=== PATIENT | female | born 1965 | race Caucasian/White ===

== ENCOUNTER 2017-01-11 12:11 | Emergency (ER) | payer OTHER ==
[~2017-01-11] VITALS: Ht 165.1 cm; Wt 81.6 kg
[~2017-01-11 12:11] MED LIST: AMLO5TAB PO; CIPRO 500MG TA500 MG PO; CITALOPRAM20 M1 PO; CITALOPRAM40 MG PO; DIABETA2.5 MG PO; FIBER THERAPY0.52 GM PO; HUMALOG100 U/M1 SC; JANUMET 1000 MG1 TAB PO; LAMICTAL150 MG PO; LANTUS INS100 UNITS/ SC; LEXAPRO10 MG PO; LISINOPRIL10 MG PO; METFORMIN1000 MG PO; METOPROLOL TAR100 MG PO; METOPROLOL25 MG PO; MOTRIN600 MG PO; NAPROXEN DELAY500 MG PO; SIMVASTATIN10 MG PO; SULFAMETHOXAZOL1 TA6 PO; TRILIPIX45 MG PO; WELLBUTRIN100 MG PO
[2017-01-11] MEDS ORDERED: DULOXETINE60 MG PO (12:39)
[2017-01-11 12:44] LABS: URINE BILIRUBIN - DIPSTICK NEGATIVE (NEG); URINE BLOOD MODERATE (NEG)
--- NOTE | 2017-01-11 12:57 | Urgent Treatment Center Report ---
History of Present Issue Date/Time Seen by Provider 01/11/17 1244 Visit Reason Pt arrived:Walked Presenting Problem:PT REPORTS LOWER ABD SORENESS, FREQUENT URINATION, AND LOW GRADE FEVER X5 DAYS. STATES PAIN WORSENS WHEN NEEDS TO URINATE Location if Accident: Onset of symptoms date/time:01/06/17/ or onset unknown for:MEDICAL HX UNKNOWN Have you (or family members/close friends) recently traveled outside the [place]? N If Yes, where/when: Have you had exposure to infectious disease within the past month? TB? Other? Specify: Patient state that she has been having some lower abdominal pain and feeling likes she needs to go to the bathroom alot and frequent urination. States that she did have a slight fever last week but that seems to be better and states that she only has pain in her abdomen when seh goes to the bathroom to urinate ALLERGIES Coded Allergies: etodolac (01/11/17) niacin (01/11/17) Home Medications Reported Medications FENOFIBRIC ACID (CHOLINE) (Trilipix) 45 MG PO DAILY Lisinopril 10 MG PO BID METFORMIN HCL (Metformin) 1,000 MG PO BID #60 TAB Lamotrigine (Lamictal) 150 MG PO QHS Amlodipine Besylate (Amlodipine) 5 MG PO DAILY Metoprolol Tartrate (Metoprolol 100MG) 100 MG PO DAILY Insulin Glargine (Lantus Insulin Vial) 54 UNITS SC QHS INSULIN LISPRO (Humalog) 18 UNITS SC 1200, 1730 DULOXETINE HCL (Duloxetine) 60 MG PO DAILY #30 History Medical History General CAD? No Angina: No [place]: No Hypertension? Yes Hyperlipidemia? Yes CHF? No DVT? No PE? No COPD? No Asthma? No Anemia? No GERD? No Gastric ulcers? No GI Bleed? No Hernia? No Thyroid Problems? No Hypothyroidism? No CVA? No Seizures? No Diabetes? Yes Insulin Dependent: Yes Insulin Pump: No Home FSBS? Yes Renal Insuffiency? No UTI? No Stones? No BPH? No GB Disease: No Nephritic Syndrome? No Asplenia? No Hepatitis? No Sickle Cell Disease? No Arthritis? Yes Migraines? No Cataracts? No Glaucoma? No MRSA? No HIV? No TB? No Anxiety? No Depression? No Cancer? 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 Comment Patient advised that she is having pressure and freqency of urination states that she feels like she needs to urinate all the time and has some burning Physical Exam Vital Signs Vital Signs Date Time Temp Pulse Resp B/P Pulse O2 O2 Flow FiO2 Ox Delivery Rate 01/11 1236 98.0 90 16 164/96 99 01/11 1215 98.0 90 16 164/96 99 General Appearance normal appearance, WD/WN, no apparent distress Respiratory Status Yes: trachea midline, chest symmetrical, non tender chest. No: respiratory distress. 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 No Results/Orders Laboratory Tests 01/11/17 1242: Urine Color YELLOW, Urine Appearance Clear, Urine pH 7.0, Ur Specific [place] 1.015, Urine Protein NEGATIVE, Urine Ketones NEGATIVE, Urine Blood MODERATE, Urine Nitrate NEGATIVE, Urine Bilirubin NEGATIVE, Urine Urobilinogen 1.0, Ur Leukocyte Esterase SMALL, Urine Glucose NEGATIVE Current Medication Orders Sig/Milly Start time Last Medication Dose Route Stop Time Status Admin Ceftriaxone Sodium 1 GM ONCE ONE 01/11 1300 DC 01/11 IM 01/11 1301 1303 Lidocaine HCl 0 ONCE ONE 01/11 1300 DC 01/11 IM 01/11 1301 1303 Ceftriaxone Sodium 0 .STK-MED ONE 01/11 1258 DC .ROUTE Lidocaine HCl 0 .STK-MED ONE 01/11 1257 DC IJ Orders Procedure Date/time Status [facility] URINE DIPSTICK 01/11 1242 Complete Departure Departure Time of Disposition 1317 Disposition DC Home or Self Care(routine) Clinical Impression Primary Impression: UTI (urinary tract infection) Qualifiers: Urinary tract infection type: site unspecified Hematuria presence: with hematuria Qualified Code: N39.0 - Urinary tract infection, site not specified Condition STABLE Referrals Reilly Paetl MD (Family): 2 Days-Call Office Follow up 2-3 days if no improvement Patient Instructions DI for Urinary Tract Infection (UTI) Additional Instructions hours without medication for symptoms Follow up with family doctor REturn if needed Take medicaiton as prescribed Discharge Counseling Counseled pt/family regarding diagnosis, test results, medications/RX, home care, follow up needs Prescriptions Current Visit Scripts SULFAMETHOXAZOLE W/TRIMETHOPRI (Bactrim Ds Tab) 1 TABLET PO BID #20 TAB at 5001
--- NOTE | 2017-01-11 12:57 | Urgent Treatment Center Report ---
History of Present Issue Date/Time Seen by Provider 01/11/17 1244 Visit Reason Pt arrived:Walked Presenting Problem:PT REPORTS LOWER ABD SORENESS, FREQUENT URINATION, AND LOW GRADE FEVER X5 DAYS. STATES PAIN WORSENS WHEN NEEDS TO URINATE Location if Accident: Onset of symptoms date/time:01/06/17/ or onset unknown for:MEDICAL HX UNKNOWN Have you (or family members/close friends) recently traveled outside the [place]? N If Yes, where/when: Have you had exposure to infectious disease within the past month? TB? Other? Specify: Patient state that she has been having some lower abdominal pain and feeling likes she needs to go to the bathroom alot and frequent urination. States that she did have a slight fever last week but that seems to be better and states that she only has pain in her abdomen when seh goes to the bathroom to urinate ALLERGIES Coded Allergies: etodolac (01/11/17) niacin (01/11/17) Home Medications Reported Medications FENOFIBRIC ACID (CHOLINE) (Trilipix) 45 MG PO DAILY Lisinopril 10 MG PO BID METFORMIN HCL (Metformin) 1,000 MG PO BID #60 TAB Lamotrigine (Lamictal) 150 MG PO QHS Amlodipine Besylate (Amlodipine) 5 MG PO DAILY Metoprolol Tartrate (Metoprolol 100MG) 100 MG PO DAILY Insulin Glargine (Lantus Insulin Vial) 54 UNITS SC QHS INSULIN LISPRO (Humalog) 18 UNITS SC 1200, 1730 DULOXETINE HCL (Duloxetine) 60 MG PO DAILY #30 History Medical History General CAD? No Angina: No [place]: No Hypertension? Yes Hyperlipidemia? Yes CHF? No DVT? No PE? No COPD? No Asthma? No Anemia? No GERD? No Gastric ulcers? No GI Bleed? No Hernia? No Thyroid Problems? No Hypothyroidism? No CVA? No Seizures? No Diabetes? Yes Insulin Dependent: Yes Insulin Pump: No Home FSBS? Yes Renal Insuffiency? No UTI? No Stones? No BPH? No GB Disease: No Nephritic Syndrome? No Asplenia? No Hepatitis? No Sickle Cell Disease? No Arthritis? Yes Migraines? No Cataracts? No Glaucoma? No MRSA? No HIV? No TB? No Anxiety? No Depression? No Cancer? 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 Comment Patient advised that she is having pressure and freqency of urination states that she feels like she needs to urinate all the time and has some burning Physical Exam Vital Signs Vital Signs Date Time Temp Pulse Resp B/P Pulse O2 O2 Flow FiO2 Ox Delivery Rate 01/11 1236 98.0 90 16 164/96 99 01/11 1215 98.0 90 16 164/96 99 General Appearance normal appearance, WD/WN, no apparent distress Respiratory Status Yes: trachea midline, chest symmetrical, non tender chest. No: respiratory distress. 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 No Results/Orders Laboratory Tests 01/11/17 1242: Urine Color YELLOW, Urine Appearance Clear, Urine pH 7.0, Ur Specific [place] 1.015, Urine Protein NEGATIVE, Urine Ketones NEGATIVE, Urine Blood MODERATE, Urine Nitrate NEGATIVE, Urine Bilirubin NEGATIVE, Urine Urobilinogen 1.0, Ur Leukocyte Esterase SMALL, Urine Glucose NEGATIVE Current Medication Orders Sig/Milly Start time Last Medication Dose Route Stop Time Status Admin Ceftriaxone Sodium 1 GM ONCE ONE 01/11 1300 DC 01/11 IM 01/11 1301 1303 Lidocaine HCl 0 ONCE ONE 01/11 1300 DC 01/11 IM 01/11 1301 1303 Ceftriaxone Sodium 0 .STK-MED ONE 01/11 1258 DC .ROUTE Lidocaine HCl 0 .STK-MED ONE 01/11 1257 DC IJ Orders Procedure Date/time Status [facility] URINE DIPSTICK 01/11 1242 Complete Departure Departure Time of Disposition 1317 Disposition DC Home or Self Care(routine) Clinical Impression Primary Impression: UTI (urinary tract infection) Qualifiers: Urinary tract infection type: site unspecified Hematuria presence: with hematuria Qualified Code: N39.0 - Urinary tract infection, site not specified Condition STABLE Referrals Reilly Patel MD (Family): 2 Days-Call Office Follow up 2-3 days if no improvement Patient Instructions DI for Urinary Tract Infection (UTI) Additional Instructions hours without medication for symptoms Follow up with family doctor REturn if needed Take medicaiton as prescribed Discharge Counseling Counseled pt/family regarding diagnosis, test results, medications/RX, home care, follow up needs Prescriptions Current Visit Scripts SULFAMETHOXAZOLE W/TRIMETHOPRI (Bactrim Ds Tab) 1 TABLET PO BID #20 TAB at 7319
[2017-01-11] MEDS ORDERED: BACTRIM DS 8001 TA1 PO (13:21)
[2017-01-11 13:26] VITALS: BP 164/96
--- OUTSIDE RECORDS SUMMARY | 2017-01-12 05:58 | External Medical Summary Rpt ---
Author Author [employer], [employer] Organization [employer] Address Unknown Phone Unavailable
--- OUTSIDE RECORDS SUMMARY | 2017-01-12 05:58 | External Medical Summary Rpt ---
Author Author , Organization [employer] Address Unknown Phone Unavailable Purpose Continuity of Care Document - through 2016
--- OUTSIDE RECORDS SUMMARY | 2017-01-12 05:58 | External Medical Summary Rpt ---
Demographics Preferred Language Turkish Marital Status Unknown Temple Affiliation Unknown Race Unknown Ethnic Group Unknown Author Author , Organization [employer] Address Unknown Phone Unavailable Purpose Continuity of Care Document - through 2016 Immunization No patient found.
--- OUTSIDE RECORDS SUMMARY | 2017-01-12 05:58 | External Medical Summary Rpt ---
Demographics Preferred Language Swiss Marital Status Unknown Church Affiliation Unknown Race Unknown Ethnic Group Unknown Author Author , Organization [employer] Address Unknown Phone Unavailable Purpose Continuity of Care Document - through 2016 Immunization No patient found.
--- OUTSIDE RECORDS SUMMARY | 2017-01-12 05:58 | External Medical Summary Rpt ---
Author Author [employer] Organization [employer] Address Unknown Phone Unavailable Purpose Continuity of Care Document - through 2016
--- OUTSIDE RECORDS SUMMARY | 2017-01-12 05:58 | External Medical Summary Rpt ---
Demographics Preferred Language Slovenian Marital Status Unknown Yarsanism Affiliation Unknown Race Unknown Ethnic Group Unknown Author Author , Organization [employer] Address Unknown Phone Unavailable Purpose Continuity of Care Document - through 2016 Immunization No patient found.
--- OUTSIDE RECORDS SUMMARY | 2017-01-12 05:58 | External Medical Summary Rpt ---
Demographics Preferred Language Mozambican Marital Status Unknown Alevism Affiliation Unknown Race Unknown Ethnic Group Unknown Author Author , Organization [employer] Address Unknown Phone Unavailable Purpose Continuity of Care Document - through 2016 Immunization No patient found.
== END 2017-01-11 13:26 | disposition home or self-care (01) ==
LOC: ER 12:11 → UTC 12:11
PROVIDERS: Nurse Practitioner
DX: N39.0 Urinary tract infection, site not specified (principal); R31.9 Hematuria, unspecified

== ENCOUNTER → 2017-06-09 | Outpatient (CLI) | payer OTHER ==
[~2017-06-09] MED LIST changes: +BACTRIM DS 8001 TA1 PO; +DULOXETINE60 MG PO
[2017-06-09 10:39] LABS: HEMOGLOBIN 11.4 g/dL (12.2-16.2); LYMPH % 33.7 % (10-50.0)
[2017-06-09 10:40] LABS: LYMPH # 1.7 K/mm3 (0.7-4.5)
[2017-06-09 11:28] LABS: BUN 12 mg/dL (7-18)
[2017-06-09 11:34] LABS: GFR (ESTIMATED) 89 ML/MIN (59-)
[2017-06-10 06:37] LABS: Vitamin D, 25-Hydroxy 53.5 ng/mL (30.0-100.0)
== END ==
LOC: LAB 09:10
PROVIDERS: Nurse Practitioner Family
DX: E53.8 Deficiency of other specified B group vitamins (principal); E55.9 Vitamin D deficiency, unspecified; E78.5 Hyperlipidemia, unspecified; E11.9 Type 2 diabetes mellitus without complications; F41.8 Other specified anxiety disorders